=== PATIENT | female | born 1990 | race Caucasian/White ===

== ENCOUNTER 2017-08-06 15:27 | Emergency (ER) | payer OTHER ==
[2017-08-06 15:36] VITALS: BMI 32.2
--- NOTE | 2017-08-06 15:57 | PDOC ---
*Physical Exam - Vital Signs Last Vital Signs Temp Pulse Resp BP Pulse Ox 98.9 F 100 H 20 127/77 100 08/06/17 15:28 08/06/17 15:28 08/06/17 15:28 08/06/17 15:28 08/06/17 15:28 ED Treatment Course - LABORATORY CBC & Chemistry Diagram: 08/06/17 16:41 08/06/17 16:41 Medical Decision Making - Medical Decision Making 08/06/17 18:51 Pt seen by the Advanced Practice Provider under my direct supervision Ancillary studies reviewed I agree with plan as outlined by the Advanced Practice Provider *DC/Admit/Observation/Transfer Diagnosis at time of Disposition: Abdominal pain during - Discharge Dispostion Disposition: HOME Condition at time of disposition: Good - Referrals Referrals: Hari Diaz MD [Staff Physician] - - Patient Instructions Printed Discharge Instructions: DI for Abdominal Pain -- Early Additional Instructions: At this time your blood work urine and ultrasound were normal. I do recommend he take Tylenol for discomfort and follow-up with referred FIRESTOPPER TECHNICIAN.
[2017-08-06 16:23] VITALS: BP 110/64; PULSE 80; TEMP 98.7
[2017-08-06 16:58] LABS: BASOPHIL 0.8 % (0-2.0); EOSINOPHIL 0.7 % (0-4.5); MCH 31.5 pg (25.7-33.7); MCHC 34.6 g/dl (32.0-36.0); MEAN PLT VOLUME 8.5 fl (7.5-11.1); NEUTROPHILS 56.6 % (42.8-82.8); PLATELET COUNT 245 K/MM3 (134-434); RDW 12.4 % (11.6-15.6); WHITE BLOOD COUNT 8.9 K/mm3 (4.0-10.0)
[2017-08-06 17:01] LABS: URINE APPEARANCE CLEAR; URINE BILIRUBIN NEGATIVE (NEGATIVE); URINE BLOOD NEGATIVE (NEGATIVE); URINE COLOR STRAW; URINE GLUCOSE (UA) NEGATIVE (NEGATIVE); URINE KETONE NEGATIVE (NEGATIVE); URINE NITRITE NEGATIVE (NEGATIVE); URINE PROTEIN NEGATIVE (NEGATIVE); URINE UROBILINOGEN NEGATIVE mg/dL (0.2-1.0)
[2017-08-06 17:19] LABS: ALBUMIN 3.7 g/dl (3.4-5.0); ANION GAP 6 (8-16); BILIRUBIN,TOTAL 0.2 mg/dL (0.2-1.0); CALCIUM 8.7 mg/dL (8.5-10.1); CO2 25 mmol/L (21-32); CREATININE 0.7 mg/dL (0.55-1.02); GLUCOSE,RANDOM 88 mg/dL (74-106); SGOT/AST 24 U/L (15-37); SGPT/ALT 27 U/L (12-78); TOT PROT 7.5 g/dl (6.4-8.2)
--- NOTE | 2017-08-06 17:28 | PDOC ---
History of Present Illness - General Chief Complaint: Pain, Acute Stated Complaint: ABD PAIN (8 WKS ) Time Seen by Provider: 08/06/17 15:51 History Source: Patient Exam Limitations: No Limitations - History of Present Illness Travel History: No Initial Comments: 08/06/17 17:28 26-year-old female currently 5 weeks presents with suprapubic cramping and mild nausea for the past 2 days. Patient states that 3 Hours Ago to Relieve Pain. Patient Denies Vaginal Discharge, Dysuria, Vaginal Bleeding, Diarrhea, Fever or Chills. Patient states no history of ovarian cysts and states has not seen an KEY SANDER for this . Timing/Duration: reports: constant Quality: reports: mild, cramping Abdominal Pain Onset Location: reports: suprapubic Pain Radiation: reports: no radiation Aggravating Factors: improves with: None Alleviating Factors: improves with: None Past History - Travel Traveled outside of the country in the last 30 days: No Close contact w/someone who was outside of country & ill: No - Past Medical History Allergies/Adverse Reactions: Allergies Allergy/AdvReac Type Severity Reaction Status Date / Time No Known Allergies Allergy Verified 08/06/17 15:34 Other medical history: DENIES. - Reproductive History Is Patient Now?: Yes - Suicide/Smoking/Psychosocial Hx Smoking History: Never smoked Information on smoking cessation initiated: No Hx Alcohol Use: No Drug/Substance Use Hx: No Substance Use Type: None Patient Lives Alone: No Lives with/in: parents Review of Systems - Review of Systems Able to Perform ROS?: Yes Constitutional: No: Symptoms Reported HEENTM: No: Symptoms Reported Respiratory: No: Symptoms reported Cardiac (ROS): No: Symptoms Reported ABD/GI: Yes: Nausea, Abdominal cramping : No: Symptoms Reported Musculoskeletal: No: Symptoms Reported Integumentary: No: Symptoms Reported Neurological: No: Symptoms reported Hematologic/Lymphatic: No: Symptoms Reported *Physical Exam - Vital Signs Last Vital Signs Temp Pulse Resp BP Pulse Ox 98.7 F 80 18 110/64 98 08/06/17 16:06 08/06/17 16:06 08/06/17 16:06 08/06/17 16:06 08/06/17 16:06 - Physical Exam General Appearance: Yes: Nourished, Appropriately Dressed. No: Apparent Distress HEENT: negative: Pale Conjunctivae Neck: positive: Supple Respiratory/Chest: positive: Lungs Clear, Normal Breath Sounds. negative: Respiratory Distress, Accessory Muscle Use Cardiovascular: positive: Regular Rhythm, Regular Rate. negative: Murmur Female Pelvic Exam: positive: normal adnexa. negative: CMT, discharge, vaginal bleeding Gastrointestinal/Abdominal: positive: Normal Bowel Sounds, Soft, Tenderness ( midsuprapubic). negative: Distended, Guarding, Rebound Musculoskeletal: negative: CVA Tenderness Extremity: positive: Normal Capillary Refill Integumentary: positive: Normal Color, Warm, Moist Neurologic: positive: Motor Strength 5/5 (ambulatory) ED Treatment Course - LABORATORY CBC & Chemistry Diagram: 08/06/17 16:41 08/06/17 16:41 - ADDITIONAL ORDERS Additional order review: Laboratory Results 08/06/17 16:41 Urine Color Straw Urine Appearance Clear Urine pH 8.0 Urine Protein Negative Urine Glucose (UA) Negative Urine Ketones Negative Urine Blood Negative Urine Nitrite Negative Urine Bilirubin Negative Urine Urobilinogen Negative 08/06/17 16:41 RBC 4.27 MCV 91.0 MCHC 34.6 RDW 12.4 MPV 8.5 Neutrophils % 56.6 Lymphocytes % 34.2 Monocytes % 7.7 Eosinophils % 0.7 Basophils % 0.8 - RADIOLOGY Radiology Studies Ordered: Category Date Time Status TRANSVAGINAL US PREG [US] Stat Ultrasound 08/06/17 16:20 Ordered Medical Decision Making - Medical Decision Making 08/06/17 17:36 Patient here currently complaining of mid suprapubic pressure and pain for the past day or 2 associated with mild nausea. Patient states roughly 5 weeks . Patient has no other complaints. Patient on exam had minutes with tenderness with no acute findings. Patient ordered for CBC, comp, urine, urine analysis, beta hCG, and ultrasound. 08/06/17 18:41 Laboratory Tests 08/06/17 08/06/17 08/06/17 16:41 16:41 16:41 WBC 8.9 Hgb 13.5 Hct 38.9 Plt Count 245 Neutrophils % 56.6 Sodium 137 Potassium 4.1 Chloride 106 Carbon Dioxide 25 BUN 8 Creatinine 0.7 Random Glucose 88 Calcium 8.7 Total Bilirubin 0.2 AST 24 ALT 27 Alkaline Phosphatase 66 Total Protein 7.5 Albumin 3.7 Beta HCG, Quant 71980.2 Urine Ketones Negative Urine Nitrite Negative Ur Leukocyte Esterase Pending Ultrasound shows intrauterine gestational sac corresponding with 6 weeks 2 days. Is also associated to-year-old sac seen. There is a 2.3 right ovarian corpus luteum cyst seen containing internal debris and blood. Left ovary appears unremarkable. There is no evidence of torsion. Patient will be discharged home with recommendations to continue with Tylenol and follow up with her primary care physician. *DC/Admit/Observation/Transfer Diagnosis at time of Disposition: Abdominal pain during Qualifiers: Trimester: first trimester Qualified Code(s): O26.891 - Other specified related conditions, first trimester; O26.891 - Other specified related conditions, first trimester; R10.9 - Unspecified abdominal pain; R10.9 - Unspecified abdominal pain - Discharge Dispostion Disposition: HOME Condition at time of disposition: Good - Referrals Referrals: Hari Diaz MD [Staff Physician] - - Patient Instructions Printed Discharge Instructions: DI for Abdominal Pain -- Early Additional Instructions: At this time your blood work urine and ultrasound were normal. I do recommend he take Tylenol for discomfort and follow-up with referred CANDY CUTTER HAND.
[2017-08-06 17:35] LABS: ALK PHOS 66 U/L (45-117)
[2017-08-06 18:11] LABS: URINE LEUK ESTERASE Negative (NEGATIVE)
== END 2017-08-06 18:53 | disposition home or self-care (01) ==
LOC: JER 15:27
DX: O26.891 Other specified pregnancy related conditions, first trimester (principal); R10.30 Lower abdominal pain, unspecified; O34.81 Maternal care for other abnormalities of pelvic organs, first trimester; N83.291 Other ovarian cyst, right side; Z3A.01 Less than 8 weeks gestation of pregnancy
CPT/HCPCS: 36415; 76817-TC; 80053; 81003; 84702; 85025; 87086; 99284-25

== ENCOUNTER 2018-01-21 15:38 | Emergency (ER) | payer OTHER ==
[2018-01-21] MEDS ORDERED: ALBUTEROL SO4 2.5/IPRATROPIUM 0.5 INH SOL 3 ML VIAL.NEB. NEB ONE ×3 (15:59→17:12)
--- NOTE | 2018-01-21 15:59 | PDOC ---
History of Present Illness - General Chief Complaint: Shortness of Breath Stated Complaint: SOB Time Seen by Provider: 01/21/18 15:50 History Source: Patient Exam Limitations: No Limitations - History of Present Illness Initial Comments: 01/21/18 16:27 Patient is a 27-year-old female with no past medical history, who presents to emergency department today complaining of shortness of breath. Patient is currently 28 weeks . She was evaluated at her [facility]'s and sent over for further evaluation. Per the [employer]CIAL SERVICES [facility]N patient with palpitations as well as shortness of breath. She currently denies chest pain and palpitations. She states that she feels short of breath with exertion and that it is hard to catch her breath. Denies fevers, chills, recent illness, cough, chest pain, nausea, vomiting, vaginal bleeding. Past History - Travel Traveled outside of the country in the last 30 days: No Close contact w/someone who was outside of country & ill: No - Past Medical History Allergies/Adverse Reactions: Allergies Allergy/AdvReac Type Severity Reaction Status Date / Time No Known Allergies Allergy Verified 08/06/17 15:34 Home Medications: Ambulatory Orders Vitamins (Sjr) - 1 tab PO DAILY 01/21/18 Pnv 29-1 Tablet 1 tab PO DAILY 01/22/18 - Suicide/Smoking/Psychosocial Hx Smoking History: Never smoked Hx Alcohol Use: No Drug/Substance Use Hx: No Substance Use Type: None Review of Systems - Review of Systems Able to Perform ROS?: Yes Comments:: 01/21/18 16:46 CONSTITUTIONAL: Absent: fever, chills, diaphoresis, generalized weakness, malaise, loss of appetite HEENT: Absent: rhinorrhea, nasal congestion, throat pain, throat swelling, difficulty swallowing, mouth swelling, ear pain, eye pain, visual Changes CARDIOVASCULAR: Absent: chest pain, loss of consciousness, palpitations, irregular heart rate, peripheral edema RESPIRATORY: Present: shortness of breath Absent: cough, shortness of breath, dyspnea with exertion, orthopnea, wheezing, stridor, hemoptysis GASTROINTESTINAL: Absent: abdominal pain, abdominal distension, nausea, vomiting, diarrhea, constipation, melena, hematochezia GENITOURINARY: Absent: dysuria, frequency, urgency, hesitancy, hematuria, flank pain, genital pain MUSCULOSKELETAL: Absent: myalgia, arthralgia, joint swelling SKIN: Absent: rash, itching, pallor HEMATOLOGIC/IMMUNOLOGIC: Absent: easy bleeding, easy bruising, lymphadenopathy, frequent infections ENDOCRINE: Absent: unexplained weight gain, unexplained weight loss, heat intolerance, cold intolerance NEUROLOGIC: Absent: headache, focal weakness or paresthesias, dizziness, unsteady gait, seizure, mental status changes, bladder or bowel incontinence PSYCHIATRIC: Absent: anxiety, depression, suicidal or homicidal ideation, hallucinations. Is the patient limited Khmer proficient: No *Physical Exam - Physical Exam Comments: 01/21/18 16:46 GENERAL: Well developed, well nourished. Awake and alert. No acute distress. Can speak in full sentences. HEENT: Normocephalic, atraumatic. PERRLA, EOMI. No conjunctival pallor. Sclera are non- icteric. Moist mucous membranes. Oropharynx is clear. NECK: Supple. Full ROM. No JVD. Carotid pulses 2+ and symmetric, without bruits. No thyromegaly. No lymphadenopathy. CARDIOVASCULAR: Regular rate and rhythm. No murmurs, rubs, or gallops. Distal pulses are 2+ and symmetric. PULMONARY: No evidence of respiratory distress. Lungs clear to auscultation bilaterally. No wheezing, rales or rhonchi. ABDOMINAL: Soft. Non-tender. Non-distended. No rebound or guarding. No organomegaly. Normoactive bowel sounds. MUSCULOSKELETAL Normal range of motion at all joints. No bony deformities or tenderness. No CVA tenderness. EXTREMITIES: No cyanosis. No clubbing. No edema. No calf tenderness. SKIN: Warm and dry. Normal capillary refill. No rashes. No jaundice. NEUROLOGICAL: Alert, awake, appropriate. Cranial nerves 2-12 intact. No deficits to light touch and temperature in face, upper extremities and lower extremities. No motor deficits in the in face, upper extremities and lower extremities. Normoreflexic in the upper and lower extremities. Normal speech. Toes are down- going bilaterally. Gait is normal without ataxia. PSYCHIATRIC: Cooperative. Good eye contact. Appropriate mood and affect. ED Treatment Course - LABORATORY CBC & Chemistry Diagram: 01/21/18 16:14 01/21/18 16:14 Medical Decision Making - Medical Decision Making 01/21/18 16:28 Patient is a 27-year-old female with no past medical history presents with 1 day of shortness of breath while . Patient is currently resting comfortably in bed. Vital signs are stable, heart rate 82 oxygen saturation 100. No lower leg pain/or unilateral calf swelling. Will obtain basic lab works and chest x-ray at this time. We will try to modify Perc the patient. Pt. will need to be evaluated in L&D. 1.basic labs including d-dimer 2.EKG, chest x-ray 3.DuoNeb's 4.reevaluate 01/21/18 17:54 Chest x-ray with no acute pathology. Patient reports feeling better after one DuoNeb. We'll continue to reevaluate. 01/21/18 19:05 Sign out given to Kaitlynn OSUNA. Pt. pending D-dimer and possible CTA. *DC/Admit/Observation/Transfer Diagnosis at time of Disposition: Shortness of breath - Discharge Dispostion Disposition: HOME Condition at time of disposition: Good Admit: No - Referrals - Patient Instructions Additional Instructions: DISCHARGE HOME RETURN TO LABOR AND DELIVERY FOR FOLLOWING -REGULAR CONTRACTIONS -DECREASE MOVEMENT -RUPTURE OF MEMBRANES -VAGINAL BLEEDING -FOLLOW UP IN CLINIC CALL IN THE MORNING TO MAKE APPOINTMENT -NO HEAVY LIFTING -REGULAR DIET -INCREASE FLUIDS - Post Discharge Activity
[2018-01-21 16:09] VITALS: BMI 31.8
[2018-01-21 17:03] LABS: BASO % 0.4 % (0-2.0); EOS % 0.3 % (0-4.5); HEMATOCRIT 33.8 % (32.4-45.2); LYMPH % 30.2 % (8-40); MCHC 35.5 g/dl (32.0-36.0); MEAN CELL VOLUME 92.9 fl (80-96); MEAN PLT VOLUME 9.2 fl (7.5-11.1); MONO % 6.5 % (3.8-10.2); NEUT % 62.6 % (42.8-82.8); PLATELET COUNT 194 K/MM3 (134-434); RBC 3.63 M/mm3 (3.60-5.2); RDW 14.3 % (11.6-15.6); WHITE BLOOD COUNT 9.2 K/mm3 (4.0-10.0)
[2018-01-21 17:04] LABS: INR 1.03 (0.82-1.09); PROTHROMBIN TIME (PATIENT) 11.6 SEC (9.98-11.88)
[2018-01-21 17:19] LABS: ALBUMIN 2.8 g/dl (3.4-5.0); ANION GAP 9 (8-16); BLOOD UREA NITROGEN 5 mg/dL (7-18); CALCIUM 8.5 mg/dL (8.5-10.1); CHLORIDE 106 mmol/L (98-107); CO2 23 mmol/L (21-32); GLUCOSE,RANDOM 88 mg/dL (74-106); SODIUM 138 mmol/L (136-145)
[2018-01-21 17:42] LABS: ALK PHOS 85 U/L (45-117); BILIRUBIN,TOTAL 0.2 mg/dL (0.2-1.0); CREATININE 0.5 mg/dL (0.55-1.02); SGPT/ALT 12 U/L (12-78); TOT PROT 6.5 g/dl (6.4-8.2)
[2018-01-21 17:45] LABS: POTASSIUM 3.9 mmol/L (3.5-5.1); SGOT/AST 20 U/L (15-37)
[2018-01-21 18:09] LABS: URINE APPEARANCE SLCLOUDY; URINE BILIRUBIN NEGATIVE (<2.0 mg/dL); URINE BLOOD NEGATIVE (NEGATIVE); URINE COLOR LTYELLOW; URINE GLUCOSE (UA) NEGATIVE (NEGATIVE); URINE KETONE NEGATIVE (NEGATIVE); URINE LEUK ESTERASE TRACE (NEGATIVE); URINE NITRITE NEGATIVE (NEGATIVE); URINE PROTEIN NEGATIVE (NEGATIVE); URINE UROBILINOGEN NEGATIVE mg/dL (0.2-1.0)
[2018-01-21 18:22] VITALS: BP 110/68; PULSE 105; TEMP 98.5
[2018-01-21 19:11] LABS: CALCIUM OXALATE CRYSTALS RARE /hpf (NONE SEEN); EPI CELLS MODERATE /HPF (FEW); URINE BACTERIA RARE /hpf (NONE SEEN)
--- NOTE | 2018-01-21 19:24 | PDOC ---
*Physical Exam - Vital Signs Last Vital Signs Temp Pulse Resp BP Pulse Ox 98.5 F 105 H 18 110/68 96 01/21/18 18:21 01/21/18 18:21 01/21/18 18:21 01/21/18 18:21 01/21/18 18:21 - Physical Exam Comments: 01/21/18 19:28 Sign-out received from outgoing ER provider Tirso. Pt interviewed and examined. Ancillary studies reviewed. Briefly, patient is a 27 yo female who presents to the ED with shortness of breath. Awaiting D-dimer for modified PERC for r/o PE. D-dimer 1264. 01/21/18 20:28 Discussed case with personal injury attorney OB Terry, will do CTA to r/o Pe. 01/21/18 23:26 CTA negative for PE. Patient medically cleared to be evaluated by L&D. ED Treatment Course - LABORATORY CBC & Chemistry Diagram: 01/21/18 16:14 01/21/18 16:14 - ADDITIONAL ORDERS Additional order review: Laboratory Results 01/21/18 01/21/18 01/21/18 16:30 16:30 16:14 PT with INR INR D-Dimer 1246 H Sodium 138 Potassium 3.9 Chloride 106 Carbon Dioxide 23 Anion Gap 9 BUN 5 L Creatinine 0.5 L Creat Clearance w eGFR > 60 Random Glucose 88 Calcium 8.5 Total Bilirubin 0.2 AST 20 ALT 12 Alkaline Phosphatase 85 Creatine Kinase Cancelled 61 Troponin I Cancelled < 0.02 Total Protein 6.5 Albumin 2.8 L Urine Color Urine Appearance Urine pH Ur Specific [place] Urine Protein Urine Glucose (UA) Urine Ketones Urine Blood Urine Nitrite Urine Bilirubin Urine Urobilinogen Ur Leukocyte Esterase Urine WBC (Auto) Urine RBC (Auto) Ur Epithelial Cells Calcium Oxalate Crystal Urine Bacteria 01/21/18 01/21/18 16:14 16:14 PT with INR 11.60 INR 1.03 D-Dimer Sodium Potassium Chloride Carbon Dioxide Anion Gap BUN Creatinine Creat Clearance w eGFR Random Glucose Calcium Total Bilirubin AST ALT Alkaline Phosphatase Creatine Kinase Troponin I Total Protein Albumin Urine Color Ltyellow Urine Appearance Slcloudy Urine pH 8.0 Ur Specific [place] 1.004 Urine Protein Negative Urine Glucose (UA) Negative Urine Ketones Negative Urine Blood Negative Urine Nitrite Negative Urine Bilirubin Negative Urine Urobilinogen Negative Ur Leukocyte Esterase Trace Urine WBC (Auto) 4 Urine RBC (Auto) 3 Ur Epithelial Cells Moderate Calcium Oxalate Crystal Rare Urine Bacteria Rare 01/21/18 16:14 RBC 3.63 MCV 92.9 MCHC 35.5 RDW 14.3 D MPV 9.2 Neutrophils % 62.6 Lymphocytes % 30.2 Monocytes % 6.5 Eosinophils % 0.3 Basophils % 0.4 - Medications Given in the ED: ED Medications Discontinued Medications Generic Name Dose Route Start Last Admin Trade Name Freq PRN Reason Stop Dose Admin Albuterol/Ipratropium 1 amp 01/21/18 15:59 01/21/18 16:06 Duoneb - NEB 01/21/18 16:00 1 amp ONCE ONE Administration Albuterol/Ipratropium 1 amp 01/21/18 17:12 01/21/18 17:44 Duoneb - NEB 01/21/18 17:13 1 amp ONCE ONE Administration *DC/Admit/Observation/Transfer Diagnosis at time of Disposition: Shortness of breath - Discharge Dispostion Admit: No - Referrals - Patient Instructions - Post Discharge Activity
--- NOTE | 2018-01-22 10:23 | EKG ---
Test Reason : Blood Pressure : / mmHG Vent. Rate : 093 BPM Atrial Rate : 093 BPM P-R Int : 132 ms QRS Dur : 074 ms QT Int : 352 ms P-R-T Axes : 057 -23 -04 degrees QTc Int : 437 ms NORMAL SINUS RHYTHM NONSPECIFIC T WAVE ABNORMALITY ABNORMAL ECG NO PREVIOUS ECGS AVAILABLE Confirmed by CHAY MARADIAGA MD ([id number]) on 01/22/2018 10:23:10 AM Referred By: Confirmed By:CHAY MARADIAGA MD
== END 2018-01-22 02:39 | disposition home or self-care (01) ==
LOC: JER 15:38
PROC: 3E0F7GC Introduction of Other Therapeutic Substance into Respiratory Tract, Via Natural or Artificial Opening (ICD-10-PCS; principal; 2018-01-21)
PROC: 3E0F7GC Introduction of Other Therapeutic Substance into Respiratory Tract, Via Natural or Artificial Opening (ICD-10-PCS; 2018-01-21)
DX: O99.89 Other specified diseases and conditions complicating pregnancy, childbirth and the puerperium (principal); R06.02 Shortness of breath; Z3A.28 28 weeks gestation of pregnancy
CPT/HCPCS: 36415; 71045-TC-FY; 71275-TC; 80053; 81003; 81015; 82550; 84484; 85025; 85379; 85610; 87086; 93005; 93010; 94640; 99285-25

== ENCOUNTER 2018-03-17 11:00 | Inpatient (IN) | payer OTHER ==
[2018-03-17] MEDS ORDERED: ELECTROLYTE-148 SOLN 500 ML IV ONE (11:58)
[2018-03-17] MEDS ORDERED: CITRIC ACID/SODIUM CITRATE 30 ML UNIT-DOSE CUP PO ONE (11:58)
[2018-03-17] MEDS ORDERED: ELECTROLYTE-148 SOLN 1,000 ML IV SCH (12:00)
--- NOTE | 2018-03-17 12:03 | HP ---
Past Medical History - Primary Care Physician PCP:: Lizett Stewart - Admission Chief Complaint: 26 yrs , 38.3/7 weeks, previous c/s type unknown , drop in , onset of LP since 9.00AM. c/o pain on & off for past 2 days History of Present Illness: PNC at [facility] Partial chart available panel 01/13/18 : B pos, Hbasg neg, Rubella immune, Cf neg, lead neg, Gc/ct neg, urine c/s neg , anemia , Hgb 10.2 02/07/18 pt was seen in L&D at [facility] , Threatened PTL, RX IV hydration , Brethine x 2 doses ,sono 33.0 , breech, post placenta, , umkund 19.0, cx 3.3 cm blood work done : urine drug tox neg , Rpr nr, Hiv nr , h/h 12.2/34.8.,plt 194, Liver enz normal, glucose 77, hiv neg History Source: Patient, Medical Record Limitations to Obtaining History: No Limitations - Past Medical History VIDEO MANAGER: No: Migraine, Seizure Cardiovascular: No: HTN, Murmur Pulmonary: No: Asthma Gastrointestinal: Yes: Constipation Hepatobiliary: No: Cholelithiasis Renal/: No: UTI ...: 2 ...Para: 1 (10/2011 [place] c[place] [facility] ...Term: 1 ...EDC by Sono: 03/28/18 Heme/Onc: Yes: Anemia (inthe begnning of pregn , treated with vit & iron) Infectious Disease: No: AIDS, HIV, STD's Psych: No: Addictions, Anxiety, Bipolar, Depression, Panic, Schizophrenia Endocrine: No: Diabetes Mellitus, Hyperthyroidism, Hypothyroidism - Past Surgical History Past Surgical History: Yes: (10/2011 primary c/s) Hx Myomectomy: No Hx Transabdominal Cerclage: No - Smoking History Smoking history: Never smoked Have you smoked in the past 12 months: No - Alcohol/Substance Use Hx Alcohol Use: No History of Substance Use: reports: None - Social History History of Recent Travel: No Home Medications - Allergies Allergies/Adverse Reactions: Allergies Allergy/AdvReac Type Severity Reaction Status Date / Time pineapple Allergy Severe Swelling Verified 03/17/18 11:51 - Home Medications Home Medications: Ambulatory Orders Vitamins (Sjr) - 1 tab PO DAILY 01/21/18 Physical Exam - Maternity Vital Signs: Selected Entries 03/17/18 12:00 Temperature 97.6 F Pulse Rate 91 H Blood Pressure 95/66 Weight 161 lb Constitutional: Yes: Well Nourished, Moderate Distress Eyes: Yes: WNL HENT: Yes: WNL, Normocephalic Neck: Yes: WNL Cardiovascular: Yes: WNL, Regular Rate and Rhythm Lungs: Clear to auscultation Breast(s): Yes: WNL - Abdominal Exam/OB Fundal Height: 38 Number of Fetuses: Single Presentation: Vertex Contractions: Yes Regularity: Regular (5-6 min) Intensity: Moderate Monitor Mode: External Heart Rate (range): 130 Heart Rate Location: [facility] Category: I Accelerations: Uniform Decelerations: None - Vaginal Exam/OB Vaginal Bleediing: Bloody Show Speculum Exam: No Dilatation (cm): 1 Effacement (%): 70 Amniotic Membrane Status: Intact Presentation: Vertex/Position (exam at 11.32AM) Station: -3 - Physical Exam Musculoskeletal: Yes: WNL Extremities: Yes: WNL. No: Calf Tenderness Edema: Yes Edema: LLE: 1+, RLE: 1+ Integumentary: Yes: WNL Deep Tendon Reflex Grade: Normal +2 ...Motor Strength: WNL Psychiatric: Yes: WNL, Alert, Oriented - Labs Lab Results: Laboratory Tests 03/17/18 03/17/18 12:30 12:40 WBC 6.4 Hgb 11.8 Hct 34.7 Plt Count 160 Neutrophils % 67.2 Lymphocytes % 25.6 Urine Protein 1+ H Urine Ketones 2+ H Urine Blood 1+ H Ur Leukocyte Esterase Negative Laboratory Tests 03/17/18 12:30 Sodium 138 Potassium 4.0 Chloride 108 H BUN 3 L Creatinine 0.4 L Random Glucose 68 L Calcium 8.4 L Total Bilirubin 0.6 D AST 13 L ALT 10 L Total Protein 6.2 L Albumin 2.8 L Laboratory Tests 03/17/18 12:30 RPR Titer Nonreactive Hemorrhage Risk Assessment - Risk Factors Medium Risk Factors: Yes: Prior , uterine surgery,or multiple laparotomies Risk Score: 1 Risk Level: Medium Risk Problem List - Problems (1) 38 weeks gestation of Code(s): Z3A.38 - 38 WEEKS GESTATION OF (2) Previous section Code(s): Z98.891 - HISTORY OF UTERINE SCAR FROM PREVIOUS SURGERY (3) First stage of labor established Code(s): VWI9738 - (4) with care elsewhere Code(s): Z34.90 - ENCNTR FOR SUPRVSN OF NORMAL , UNSP, UNSP TRIMESTER Assessment/Plan 27 yrs , previous c/section , type unknown , in early labor , drop in , requests for repeat c/section
[2018-03-17 12:11] VITALS: BMI 29.4
[2018-03-17 12:59] LABS: BASO % 0.6 % (0-2.0); EOS % 0.1 % (0-4.5); HEMATOCRIT 34.7 % (32.4-45.2); HEMOGLOBIN 11.8 GM/dL (10.7-15.3); LYMPH % 25.6 % (8-40); MCH 31.8 pg (25.7-33.7); MEAN CELL VOLUME 93.3 fl (80-96); MEAN PLT VOLUME 9.1 fl (7.5-11.1); MONO % 6.5 % (3.8-10.2); NEUT % 67.2 % (42.8-82.8); PLATELET COUNT 160 K/MM3 (134-434); RBC 3.72 M/mm3 (3.60-5.2); RDW 14.3 % (11.6-15.6); WHITE BLOOD COUNT 6.4 K/mm3 (4.0-10.0)
[2018-03-17 13:09] LABS: URINE APPEARANCE CLEAR; URINE BILIRUBIN NEGATIVE (<2.0 mg/dL); URINE COLOR YELLOW; URINE GLUCOSE (UA) NEGATIVE (NEGATIVE); URINE KETONE 2+ (NEGATIVE); URINE LEUK ESTERASE NEGATIVE (NEGATIVE); URINE NITRITE NEGATIVE (NEGATIVE)
[2018-03-17 13:13] LABS: URINE PROTEIN 1+ (NEGATIVE)
[2018-03-17 13:16] LABS: INR 1.02 (0.82-1.09); PROTHROMBIN TIME (PATIENT) 11.5 SEC (9.7-13.0)
[2018-03-17 13:18] LABS: ACTIVATED PTT 28.7 SECONDS (26.9-34.4)
[2018-03-17 13:35] LABS: ALBUMIN 2.8 g/dl (3.4-5.0); ANION GAP 11 (8-16); BILIRUBIN,TOTAL 0.6 mg/dL (0.2-1.0); BLOOD UREA NITROGEN 3 mg/dL (7-18); CALCIUM 8.4 mg/dL (8.5-10.1); CHLORIDE 108 mmol/L (98-107); CO2 19 mmol/L (21-32); CREATININE 0.4 mg/dL (0.55-1.02); GLUCOSE,RANDOM 68 mg/dL (74-106); SGOT/AST 13 U/L (15-37); SGPT/ALT 10 U/L (12-78); SODIUM 138 mmol/L (136-145); TOT PROT 6.2 g/dl (6.4-8.2)
[2018-03-17 13:36] LABS: ALK PHOS 147 U/L (45-117)
[2018-03-17] MEDS ORDERED: morphine SULFATE/Preservative Free 0.5 MG/ML (1cc Syringe) EP ONE (13:37)
[2018-03-17] MEDS ORDERED: ONDANSETRON 4 MG/2 ML VIAL IVPUSH PRN (13:37)
[2018-03-17] MEDS ORDERED: IBUPROFEN 800 MG/8 ML IJ IVPB PRN (13:38)
[2018-03-17 13:40] LABS: EPI CELLS RARE /HPF (FEW); URINE BACTERIA FEW /hpf (NONE SEEN); URINE HYALINE CAST 3 /lpf; URINE MUCUS RARE
[2018-03-17] MEDS ORDERED: ceFAZolin SODIUM 1 GM VIAL ONE (13:48)
[2018-03-17] MEDS ORDERED: OXYTOCIN 20 UNITS in 0.9% NS 40 UNIT/2,000 ML INFUS.BAG IV ONE (13:56)
[2018-03-17] MEDS ORDERED: ePHEDrine SULFATE 50 MG/1 ML AMPULE ONE (14:08)
[2018-03-17] MEDS ORDERED: OXYTOCIN 10 UNITS/ML VIAL ONE (14:17)
[2018-03-17 14:44] LABS: ARTERIAL BLD GAS O2 SATURATION 11.7 % (90-98.9); ARTERIAL BLOOD GAS pH 7.27 (7.35-7.45)
[2018-03-17 14:51] LABS: ARTERIAL BLOOD GAS PO2 11.4 mmHg (80-100)
[2018-03-17 15:00] LABS: VENOUS PC02 39.8 mmHg (38-52); VENOUS PH 7.33 (7.32-7.42); VENOUS PO2 21.8 mmHg (28-48)
--- NOTE | 2018-03-17 15:19 | OP ---
Operative Note - Note: Operative Date: 03/17/18 Pre-Operative Diagnosis: 38.3 weeks , previous c/s type unknown, in labor Operation: primary LFTC/Section Findings: 2.15 pm baby Boy, vx Lot position 9/9, wt 6'8" , Ht 19.5" both tubes & ovaries normal Drmandru present in OR Iv ancef 1 gm prior to incision was given Surgeon: Lizett Stewart Stripper Black And White: Isaiah Solomon Anesthesiologist/ELECTRICIAN'S HELPER: Phil Isbell Anesthesia: Spinal Specimens Removed: cord segment for cord gas. cord blood. placenta Estimated Blood Loss (mls): 800 Drains, Volume Out (mls): 100 (marrufo output, doyle color ) Fluid Volume Replaced (mls): 1,700 (iv ancef 1 gm ivpb ) Operative Report Dictated: Yes
--- NOTE | 2018-03-17 15:29 | PN ---
Delivery - Delivery Section: Repeat, Low Flap Transverse (indication 38.3 weeks, previous c /s type unknown, in labor) Type of Anesthesia: Spinal EBL (cc): 800 (marrufo output 100 ml clear ) Delivery, Single - Stages of Labor Date 1st Stage Initiatied: 03/17/18 Time 1st Stage Initiated: 09:00 Date of Delivery: 03/17/18 Time of Delivery: 02:15 Date Placenta Delivered: 03/17/18 Time Placenta Delivered: 02:17 Placenta: Yes: Manual Removal, Uterine Exploration - Condition of Manager Physical/Wealth Management Director Present: Yes Name: Brant Goodrich Infant Gender: Male Weight: 6 lb 8 oz Position: Left, OT Total Hours ROM (Hrs/Mins): 2 min - 1 Minute Total Score: 9 5 Minutes Total Score: 9 - [place] Feeding Plan Initial Plan: Elected not to breastfeed exclusively throughout hospitalization Remarks - Remarks Remarks: 27 yrs , 38.3/7 weeks, previous c/s , type unknown , in labor pnc at [facility] cr gbs unknown intraop course uneventful
--- NOTE | 2018-03-17 16:48 | OP ---
DATE OF OPERATION: 03/17/2018 PREOPERATIVE DIAGNOSIS: At 38-3/7 weeks; previous section, type unknown; in labor. OPERATION DONE: Repeat low flap transverse section. SURGEON: Lizett Stewart MD RADIOLOGY TECHNICIAN SURGEON: ELMIRA Mari ANESTHESIOLOGIST: Phil Isbell MD ANESTHESIA: Spinal. FINDINGS: This is a 27-year-old, 2, para 1-0-0-1, EDC is March 28, 2018, is 38-3/7 weeks, onset of labor since 9 a.m., complaining of pain for the last 2 days, is 1 cm dilated, 70% cervix stretch over the head, and request for a section. Previous section, type unknown, in [place] and patient is a drop in. PROCEDURE: The patient's abdomen was shaved/prepped, Boland catheter was placed. She was taken to the operating room table, spinal anesthesia was given. She was placed in supine position and abdomen was prepped and draped in usual manner. Skin, subcutaneous tissue, anterior rectus sheath was incised transversely. Bleeding points were clamped and cauterized. Rectus muscle was from the rectus sheath. Parietal peritoneum was opened vertically. Lower flap parietal peritoneum was incised transversely. The bladder was high up in the lower segment and the uterine segment was isolated. Lower uterine segment was incised transversely, amniotic fluid was clear, and the baby was delivered from LOT position at 2:15 p.m. Cord was clamped, cut, cord blood was collected. Baby boy, was 9/9. Baby 's weight is 6 pounds 8 ounces. Cord segment was sent for cord blood gas. Cord blood was collected. Placenta was removed completely with the membranes. Uterine cavity was cleaned and the uterine incision was closed in 2 layers. The 1st layer was a continuous locking with a Biosyn 0 suture, 2nd was a continuous intermittent locking with a Biosyn 0 suture, and the 1st layer was imbricated with the 2nd layer by vertical mattress sutures. Hemostasis was checked and the bladder peritoneum was closed with a Biosyn 0 suture. Both tubes and ovaries were normal. Irrigation was done. The sponge, instrument, needle count was correct. Closure of the abdominal wall was done and parietal peritoneum was closed with Vicryl 0 continuous sutures. Hemostasis was checked underneath the rectus sheath flaps. Muscles were approximated with interrupted sutures with a Vicryl 0, and then anterior rectus sheath was closed with a Vicryl 0 continuous suture. Hemostasis was checked in subcutaneous tissue. Subcutaneous tissue was closed with interrupted sutures with 0 Vicryl suture and then the skin was approximated with an intradermal suture with a 4-0 Vicryl on a straight needle. Steri-Strips applied, pressure dressing given. Blood clots were removed from the vagina. Estimated blood loss was 800 mL. Urine output intraoperative was 100 mL. Patient tolerated the procedure well. She received IV Ancef 1 g prior to the incision. Dr. Goodrich, clinical research spec, was present in the room. The patient was transferred to the recovery room in stable condition. Sho DUBOIS/[id number] MTDD
[2018-03-17 17:45] LABS: BASO % 0.2 % (0-2.0); HEMATOCRIT 37.8 % (32.4-45.2); HEMOGLOBIN 12.5 GM/dL (10.7-15.3); LYMPH % 20.2 % (8-40); MCH 31.8 pg (25.7-33.7); MCHC 33.1 g/dl (32.0-36.0); MEAN CELL VOLUME 96.1 fl (80-96); MEAN PLT VOLUME 9.2 fl (7.5-11.1); MONO % 5.3 % (3.8-10.2); NEUT % 74.3 % (42.8-82.8); PLATELET COUNT 158 K/MM3 (134-434); RBC 3.93 M/mm3 (3.60-5.2); RDW 14.3 % (11.6-15.6)
[2018-03-17] MEDS ORDERED: OXYTOCIN 20 UNITS in 0.9% NS 20 UNIT/1,000 ML INFUS.BAG IV SCH ×2 (18:00→19:00)
[2018-03-17 18:02] LABS: ANION GAP 13 (8-16); BLOOD UREA NITROGEN 3 mg/dL (7-18); CALCIUM 7.5 mg/dL (8.5-10.1); CHLORIDE 112 mmol/L (98-107); CO2 15 mmol/L (21-32); CREATININE 0.3 mg/dL (0.55-1.02); GLUCOSE,RANDOM 73 mg/dL (74-106); SODIUM 140 mmol/L (136-145)
[2018-03-17 18:04] LABS: POTASSIUM 4.5 mmol/L (3.5-5.1)
[2018-03-17] MEDS ORDERED: OXYTOCIN 20 UNITS in 0.9% NS 20 UNIT/1,000 ML INFUS.BAG IV ONE (18:10)
[2018-03-17] MEDS ORDERED: METHYLERGONOVINE MALEATE 0.2 MG/1 ML AMP IM PRN (18:42)
[2018-03-17] MEDS ORDERED: TUBERCULIN PPD 5 TU/0.1ML SYRINGE (IN PATIENT USE ONLY) ID ONE (19:15)
[2018-03-17] MEDS: FERROUS SO4 325 MG TABLET (FP) PO SCH (20:56)
[2018-03-18] MEDS ORDERED: DEXTROSE 5%-WATER - 50 ML IVPB ONE ×3 (00:58→16:55)
[2018-03-18] MEDS ORDERED: ceFAZolin SODIUM 1 GM VIAL ONE ×3 (00:58→16:55)
[2018-03-18] MEDS: CEFAZOLIN 1 GM in DEXTROSE 5%-WATER - 50 ML IVPB SCH ×3 (01:02→17:11)
--- NOTE | 2018-03-18 07:50 | PN ---
Post Progress Note - Subjective Subjective: c/o pain scale 5/10 no c/o dizziness not voided after cervidil taken out Post Day: 1 Type of Delivery: Repeat C/S Vital Signs: Vital Signs Temperature 98.1 F 03/18/18 06:00 Pulse Rate 72 03/18/18 06:00 Respiratory Rate 20 03/18/18 07:00 Blood Pressure 94/70 03/18/18 06:00 O2 Sat by Pulse Oximetry (%) 100 03/17/18 16:00 Breast Exam: Yes: Soft, Other (BF ). No: Engorged Uterus: Yes: Fundus Firm, Fundus below umbilicus Incision: Yes: Dressing dry and intact. No: Redness, Oozing Abdomen/GI: Yes: Abdomen soft (bs active ), Tolerating PO (clear liquids ). No : Abdominal Distention, Tender, Passing flatus Lochia: Yes: Rubra Lochia, amount: Moderate Extremities: Yes: Calves non-tender, Edema Perineum: Yes: Intact Activity: Other (not oob yet ) - Labs Labs: CBC WBC 8.0 K/mm3 (4.0-10.0) 03/17/18 17:00 RBC 3.93 M/mm3 (3.60-5.2) 03/17/18 17:00 Hgb 12.5 GM/dL (10.7-15.3) 03/17/18 17:00 Hct 37.8 % (32.4-45.2) 03/17/18 17:00 MCV 96.1 fl (80-96) H 03/17/18 17:00 MCH 31.8 pg (25.7-33.7) 03/17/18 17:00 MCHC 33.1 g/dl (32.0-36.0) 03/17/18 17:00 RDW 14.3 % (11.6-15.6) 03/17/18 17:00 Plt Count 158 K/MM3 (134-434) 03/17/18 17:00 MPV 9.2 fl (7.5-11.1) 03/17/18 17:00 Neutrophils % 74.3 % (42.8-82.8) 03/17/18 17:00 Lymphocytes % 20.2 % (8-40) D 03/17/18 17:00 Monocytes % 5.3 % (3.8-10.2) 03/17/18 17:00 Eosinophils % 0.0 % (0-4.5) D 03/17/18 17:00 Basophils % 0.2 % (0-2.0) 03/17/18 17:00 Nucleated RBC % 0 % (0-0) 03/17/18 17:00 Other Findings, Remarks: rs cta output 1400 ml Problem List - Problems (1) 38 weeks gestation of Code(s): Z3A.38 - 38 WEEKS GESTATION OF (2) Previous section Code(s): Z98.891 - HISTORY OF UTERINE SCAR FROM PREVIOUS SURGERY (3) First stage of labor established Code(s): ZQW8096 - (4) with care elsewhere Code(s): Z34.90 - ENCNTR FOR SUPRVSN OF NORMAL , UNSP, UNSP TRIMESTER (5) delivery delivered Code(s): O82 - ENCOUNTER FOR DELIVERY WITHOUT INDICATION (6) follow-up Code(s): Z39.2 - ENCOUNTER FOR ROUTINE FOLLOW-UP Assessment/Plan stable ct po care cbc today
[2018-03-18 08:03] LABS: BASO % 0.7 % (0-2.0); EOS % 0.1 % (0-4.5); HEMATOCRIT 34.2 % (32.4-45.2); HEMOGLOBIN 11.7 GM/dL (10.7-15.3); LYMPH % 14.2 % (8-40); MCH 31.4 pg (25.7-33.7); MCHC 34.1 g/dl (32.0-36.0); MEAN PLT VOLUME 8.8 fl (7.5-11.1); MONO % 7.7 % (3.8-10.2); NEUT % 77.3 % (42.8-82.8); PLATELET COUNT 140 K/MM3 (134-434); RBC 3.71 M/mm3 (3.60-5.2)
[2018-03-18] MEDS: FERROUS SO4 325 MG TABLET (FP) PO SCH ×2 (08:17→18:02)
[2018-03-18] MEDS: ENOXAPARIN NA (PORCINE) 40 MG/0.4 ML DISP.SYRIN SQ SCH (09:09)
--- NOTE | 2018-03-18 09:19 | PN ---
Progress Note (short form) - Note Progress Note: Anesthesiology Post-op 27 y.o. woman POD#1 s/p C/S under spinal anesthesia. Pt. is awake and alert in bed. She feels well and has no complaints. She is able to move legs with no residual paresthesia and states that she felt light- headed before but now feels better. She denies h/a or n/v. VSS. 27 y.o. woman with stable post-operative course s/p C/S with no apparent anesthesia-related issues. Continue post-operative management as per primary team.
[2018-03-18] MEDS ORDERED: DIPHTH,PERTUSS(ACELL),TET 0.5 ML DISP.SYRIN IM ONE (10:00)
[2018-03-18] MEDS: PRENATAL VITAMINS W/ FOLIC ACID TABLET (FP) PO SCH (10:12)
[2018-03-18] MEDS: SIMETHICONE 80 MG TAB.CHEW (FP) PO PRN ×2 (12:39→21:51)
[2018-03-18] MEDS: ACETAMINOPHEN 325 MG TABLET (FP) PO PRN ×2 (12:39→22:02)
[2018-03-18] MEDS: IBUPROFEN 600 MG TABLET (FP) PO PRN (12:40)
[2018-03-18] MEDS ORDERED: BISACODYL 10 MG SUPP.RECT RC PRN (18:42)
[2018-03-18] MEDS: SENNOSIDES/DOCUSATE COMBO (SENNA PLUS) TABLET (UD) PO PRN (21:51)
[2018-03-18] MEDS: oxyCODONE HCL 5 MG TABLET PO PRN (22:02)
[2018-03-19] MEDS: oxyCODONE HCL 5 MG TABLET PO PRN ×3 (05:30→20:29)
[2018-03-19] MEDS: SIMETHICONE 80 MG TAB.CHEW (FP) PO PRN ×2 (05:30→08:56)
[2018-03-19] MEDS: ACETAMINOPHEN 325 MG TABLET (FP) PO PRN ×2 (05:30→20:28)
[2018-03-19] MEDS: FERROUS SO4 325 MG TABLET (FP) PO SCH ×2 (08:50→17:12)
--- NOTE | 2018-03-19 08:55 | PN ---
Post Progress Note - Subjective Subjective: c/o pain scale 8/10 voiding without difficulty bm done Post Day: 2 Type of Delivery: Repeat C/S Vital Signs: Vital Signs Temperature 98.5 F 03/18/18 20:40 Pulse Rate 104 H 03/18/18 20:40 Respiratory Rate 20 03/18/18 20:40 Blood Pressure 90/56 03/18/18 20:40 O2 Sat by Pulse Oximetry (%) 100 03/17/18 16:00 Breast Exam: Yes: Soft, Other (BF). No: Engorged Uterus: Yes: Fundus Firm, Fundus below umbilicus, Non-tender Incision: Yes: Dressing dry and intact (to be changed ). No: Redness, Oozing Abdomen/GI: Yes: Abdomen soft, Passing flatus, Tolerating PO (diet ). No: Abdominal Distention, Tender Lochia: Yes: Rubra Lochia, amount: Small Extremities: Yes: Calves non-tender Perineum: Yes: Intact Activity: Ambulating - Labs Labs: CBC WBC 11.0 K/mm3 (4.0-10.0) H D 03/18/18 07:30 RBC 3.71 M/mm3 (3.60-5.2) 03/18/18 07:30 Hgb 11.7 GM/dL (10.7-15.3) 03/18/18 07:30 Hct 34.2 % (32.4-45.2) 03/18/18 07:30 MCV 92.0 fl (80-96) 03/18/18 07:30 MCH 31.4 pg (25.7-33.7) 03/18/18 07:30 MCHC 34.1 g/dl (32.0-36.0) 03/18/18 07:30 RDW 14.0 % (11.6-15.6) 03/18/18 07:30 Plt Count 140 K/MM3 (134-434) 03/18/18 07:30 MPV 8.8 fl (7.5-11.1) 03/18/18 07:30 Neutrophils % 77.3 % (42.8-82.8) 03/18/18 07:30 Lymphocytes % 14.2 % (8-40) D 03/18/18 07:30 Monocytes % 7.7 % (3.8-10.2) 03/18/18 07:30 Eosinophils % 0.1 % (0-4.5) D 03/18/18 07:30 Basophils % 0.7 % (0-2.0) D 03/18/18 07:30 Nucleated RBC % 0 % (0-0) 03/18/18 07:30 Problem List - Problems (1) 38 weeks gestation of Code(s): Z3A.38 - 38 WEEKS GESTATION OF (2) Previous section Code(s): Z98.891 - HISTORY OF UTERINE SCAR FROM PREVIOUS SURGERY (3) First stage of labor established Code(s): VTQ7005 - (4) with care elsewhere Code(s): Z34.90 - ENCNTR FOR SUPRVSN OF NORMAL , UNSP, UNSP TRIMESTER (5) delivery delivered Code(s): O82 - ENCOUNTER FOR DELIVERY WITHOUT INDICATION (6) follow-up Code(s): Z39.2 - ENCOUNTER FOR ROUTINE FOLLOW-UP Assessment/Plan stable s/p rc/section plan ct po care
[2018-03-19] MEDS: IBUPROFEN 600 MG TABLET (FP) PO PRN (08:57)
[2018-03-19] MEDS: PRENATAL VITAMINS W/ FOLIC ACID TABLET (FP) PO SCH (10:32)
[2018-03-19] MEDS: ENOXAPARIN NA (PORCINE) 40 MG/0.4 ML DISP.SYRIN SQ SCH (10:32)
[2018-03-19] MEDS: SENNOSIDES/DOCUSATE COMBO (SENNA PLUS) TABLET (UD) PO PRN (20:29)
[2018-03-20] MEDS: ACETAMINOPHEN 325 MG TABLET (FP) PO PRN ×2 (03:16→08:23)
[2018-03-20] MEDS: oxyCODONE HCL 5 MG TABLET PO PRN (03:17)
[2018-03-20] MEDS: FERROUS SO4 325 MG TABLET (FP) PO SCH (08:23)
[2018-03-20] MEDS: IBUPROFEN 600 MG TABLET (FP) PO PRN (08:24)
[2018-03-20 08:43] LABS: BASO % 0.8 % (0-2.0); EOS % 2.1 % (0-4.5); HEMATOCRIT 35.2 % (32.4-45.2); HEMOGLOBIN 12.1 GM/dL (10.7-15.3); MCHC 34.4 g/dl (32.0-36.0); MEAN CELL VOLUME 92.8 fl (80-96); MEAN PLT VOLUME 8.8 fl (7.5-11.1); MONO % 6.5 % (3.8-10.2); NEUT % 60.6 % (42.8-82.8); PLATELET COUNT 197 K/MM3 (134-434); RBC 3.79 M/mm3 (3.60-5.2); RDW 14.1 % (11.6-15.6); WHITE BLOOD COUNT 8.2 K/mm3 (4.0-10.0)
[2018-03-20 09:23] VITALS: BP 109/74; PULSE 80; TEMP 98.1
--- NOTE | 2018-03-20 09:42 | DS ---
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[employer] Vital Signs: Vital Signs Temperature 98.1 F 03/20/18 09:19 Pulse Rate 80 03/20/18 09:19 Respiratory Rate 18 03/20/18 09:19 Blood Pressure 109/74 03/20/18 09:19 O2 Sat by Pulse Oximetry (%) 100 03/17/18 16:00 Constitutional: Yes: Well Nourished Eyes: Yes: Conjunctiva Clear HENT: Yes: Atraumatic Neck: Yes: Supple Cardiovascular: Yes: Regular Rate and Rhythm Respiratory: Yes: Regular Gastrointestinal: Yes: Normal Bowel Sounds External Genitalia: Yes: Normal Vaginal Exam: Yes: Normal Cervix: Yes: Normal Uterus: Yes: Normal Wound/Incision: Yes: Clean/Dry Neurological: Yes: Alert, Oriented ...Motor Strength: WNL Psychiatric: Yes: Alert, Oriented Labs: CBC, BMP 03/20/18 08:00 03/17/18 17:00 Delivery - Delivery Section: Repeat, Low Flap Transverse (indication 38.3 weeks, previous c /s type unknown, in labor) Type of Anesthesia: Spinal Episiotomy/Laceration: None EBL (cc): 800 Delivery, Single - Stages of Labor Date 1st Stage Initiatied: 03/17/18 Time 1st Stage Initiated: 09:00 Date of Delivery: 03/17/18 Time of Delivery: 14:15 Time Placenta Delivered: 14:17 Placenta: Yes: Manual Removal, Uterine Exploration - 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 Present: Yes Name: Brant Goodrich Infant Gender: Male Weight: 6 lb 8 oz Position: Left, OT Total Hours ROM (Hrs/Mins): 2 min - 1 Minute Total Score: 9 5 Minutes Total Score: 9 - [place] Feeding Plan Initial Plan: Elected not to breastfeed exclusively throughout hospitalization Discharge Summary Current Active Problems 38 weeks gestation of (Acute) delivery delivered (Acute) First stage of labor established (Acute) follow-up (Acute) with care elsewhere (Acute) Previous section (Acute) Procedures: Principal: Repeat Low Transverse Hospital Course: Routine post op care Condition: Good - Instructions Diet, Activity, Other Instructions: Post Instructions DIET: Continue good diet high in protein, calcium, and iron rich foods. Drink at least eight (8) glasses of water daily in addition to other fluids. ___ Regular diet MEDICATIONS: Continue vitamins and iron as previously directed. Motrin and Tylenol may be taken for minor discomfort. ACTIVITY: Mild to moderate exercise may be started in two (2) weeks. Take frequent rest periods. Resume normal activity after six (6) week check up. WOUND CARE OF OPERATIVE SITE: Continue use of perineal bottle until vaginal discharge stops. Keep area clean. Shower daily. Keep abdominal wound dry. Report any drainage or redness to physician. Tub baths, tampons and douches are not permitted for [address] Breast feeding & or Bottle feeding BREAST CARE: (For those that are not breast feeding): If engorgement occurs: Wear tight fitting bra. Take Tylenol or Motrin for pain. Apply cold packs (ice in bags to each breast ) FAMILY PLANNING: There are many control alternatives to pursue and they should be discussed at your first office visit. You may resume sexual activity after your six (6) week check up. (Remember, breast feeding is not a contraceptive) NEXT PHYSICIAN APPOINTMENT: Be certain to call for a two (2) week appointment, unless otherwise directed. wound check Call Clinic or got to Emergency Dept if you have any of the following: Heavy vaginal bleeding Painful urination Leg pain Unusual odor noted to vaginal bleeding High fever Red streaking noted on breast Referrals: Lizett Stewart MD [Staff Physician] - Disposition: HOME - Home Medications Comprehensive Discharge Medication List: Ambulatory Orders Vitamins (Sjr) - 1 tab PO DAILY 01/21/18 Acetaminophen [Tylenol .Regular Strength -] 500 mg PO Q4H PRN #30 tablet Ibuprofen [Motrin -] 600 mg PO Q4H PRN #30 tablet 03/19/18 Vitamins (Sjr) - 1 tab PO DAILY #30 tablet 03/19/18
[2018-03-20] MEDS: ENOXAPARIN NA (PORCINE) 40 MG/0.4 ML DISP.SYRIN SQ SCH (09:55)
[2018-03-20] MEDS: PRENATAL VITAMINS W/ FOLIC ACID TABLET (FP) PO SCH (09:55)
--- NOTE | 2018-03-21 17:18 | PATH ---
Surgical Pathology Report Patient Name: PATY INGRAM [facility]. Rec. 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 Specimen(s) Received PLACENTA Clinical History , 38.3 weeks, previous in labor Final Diagnosis PLACENTA, SECTION: 429 g THIRD TRIMESTER PLACENTA WITH TRIVASCULAR UMBILICAL CORD AND UNREMARKABLE PLACENTAL MEMBRANES. Electronically Signed Brenda Robison M.D. Gross Description The specimen is received fresh labeled placenta and is a 429 gram, 18.0 x 16.0 x 2.5 cm. placenta with attached membranes and umbilical cord. The attached membranes are cole, translucent with focal opacities and insert marginally. The umbilical cord measures 12 cm. in length and averages 1.1 cm. in diameter. The cord inserts eccentrically, 5 cm. to the nearest margin. No true knots or strictures are identified. Cut surface of the umbilical cord reveals 3 vessels. The surface is rosario-blue with minimal fibrin deposition and appropriate caliber vessels. The maternal surface is red-brown with focal defects. Sectioning reveals red-brown, spongy parenchyma. No lesions are identified. Draw Tender sections are submitted in three cassettes as follows: 1- membrane rolls and umbilical cord; 2-3- full thickness sections of placenta. 03/20/2018 [facility]03/20/2018
== END 2018-03-20 14:55 | disposition home or self-care (01) | DRG 540 ==
LOC: JDEL 11:00 → JLDR 11:40 → J3W 18:05
PROVIDERS: ADMIT Obstetrics & Gynecology; ATTEND Obstetrics & Gynecology
PROC: 10D00Z1 Extraction of Products of Conception, Low, Open Approach (ICD-10-PCS; principal; 2018-03-17)
DX: O34.211 Maternal care for low transverse scar from previous cesarean delivery (principal); Z3A.38 38 weeks gestation of pregnancy; Z37.0 Single live birth
CPT/HCPCS: 36415; 36600; 80048; 80053; 81003; 81015; 82803; 85025; 85610; 85730; 86593; 86850; 86900; 86901; 88307-TC; 90715